=== PATIENT | male | born 1965 ===

== ENCOUNTER → 2024-10-18 08:02 | Outpatient (BNVA) | payer SELFPAY | PROVIDERS: PCP Family Medicine; Visit Provider Podiatrist Foot & Ankle Surgery | DX: S82.842A Displaced bimalleolar fracture of left lower leg, initial encounter for closed fracture (principal); W17.89XA Other fall from one level to another, initial encounter | CPT/HCPCS: 73590; 73610 ==

== ENCOUNTER 2024-10-18 10:52 | Outpatient (CLI) | payer SELFPAY | END 2024-10-18 10:53 | disposition home or self-care (01) | LOC: SPT 10:52 | PROVIDERS: PCP Family Medicine; Visit Provider Podiatrist Foot & Ankle Surgery | DX: Z46.89 Encounter for fitting and adjustment of other specified devices (principal); S82.892D Other fracture of left lower leg, subsequent encounter for closed fracture with routine healing; X58.XXXD Exposure to other specified factors, subsequent encounter | CPT/HCPCS: L4361 ==

== ENCOUNTER 2024-10-22 07:43 | Day surgery (SDC) | payer SELFPAY ==
[2024-10-22] VITALS (14 sets, daily range): BP systolic 104–218; BP diastolic 75–129; PULSE 72–88; RESP 16–18; TEMP 36.1–36.8; O2SAT 91–98; BMI 38.2
--- NOTE | 2024-10-22 | XR_ITS ---
WS: [id number] XR ankle LT min 3V* [id number] REASON FOR EXAM: ORIF left bimalleolar ankle fracture FINDINGS: Plate and screw fixation of distal supra syndesmotic fracture of the fibula. Additionally, trans tibiofibular anchor. Surgical appliances are intact and in proper position and alignment. Fracture fragments are in good apposition and alignment. XR/XR ankle LT min 3V* [id number] IMPRESSION: Distal left fibular fracture with internal fixation as above.
[2024-10-22] MEDS: CELEcoxib 200 mg Capsule 400 MG PO (08:39)
[2024-10-22] MEDS: gabapentin 300 mg Capsule PO (08:39)
[2024-10-22] MEDS: sodium chloride 0.9% 1,000 ML 30 ML IV (08:41)
[2024-10-22] MEDS: hyDRALAzine 20 mg/mL INJ 1 mL 10 MG IVP (08:46)
--- NOTE | 2024-10-22 08:51 | P.ANESASSM_ITS ---
Pre-Anesthetic Assessment Height/Weight: Height 1.88 m Weight 135.171 kg Temp Pulse Resp BP Pulse Ox O2 Del Method 98.3 F 82 18 176/114 95 Room Air 10/22/24 08:12 10/22/24 08:12 10/22/24 08:12 10/22/24 08:36 10/22/24 08:12 10/22/24 08:12 Preop Diagnosis: Left bimalleolar ankle fracture Operation Date: 10/22/24 09:55 Proposed Procedures p ORIF Ankle ORIF Bimalleolar Fracture(Left) - Adrien Duarte DPM Familial anesthetic complications: none Was Beta Vianney taken within 24 hours: N/A Was Clonidine taken within 24 hours: N/A Last intake: Intake Last Liquid Date 10/21/24 Last Liquid Time 22:30 Last Solid Date 10/21/24 Last Solid Time 21:00 Social Tobacco 1 pack(s) per day 38 pack years Exam alert, oriented x 3, clear to auscultation bilaterally and regular rate & rhythm Airway Mallampati: Class II Comments: Comments: endentulous Pulmonary None reported CV/HEM None reported HTN preop 176/112 hydralazine 10mg IVP once given. None reported Hepatic None reported GI None reported Metabolic Morbid Obesity [facility] [place] None reported Neuropsych None reported Anesthetic Plan ASA status: 3 Anesthesia: Eval. for regional block and General Risk of > 500 ml blood loss (7ml/kg in children): No Medications/Allergies Home Medications ?Medication ?Instructions ?Recorded ?Confirmed ?Last Taken ?Type CAM boot #1 ea 10/18/24 10/18/24 Unkn own Rx acetaminophen 300 mg-codeine 30 mg 1 - 2 tab PO Q4H 10/22/24 Unknown History tablet Allergies Allergy/AdvReac Type Severity Reaction Status Date / Time No Known Allergies Allergy Verified 10/22/24 07:51 Current Medications Generic Name Dose Route Start Last Admin Trade Name Freq PRN Reason Stop Dose Admin Sodium Chloride 1,000 mls @ 30 mls/hr 10/22/24 08:15 10/22/24 08:41 Sodium Chloride 0.9% IV 10/23/24 08:14 30 mls/hr .Q24H RUTH Administration PFSH Anesthesia Social History Smoking and tobacco/nicotine status: unknown if used tobacco/nicotine Data Anesthesia Cardiac Studies: No Data to Display
--- NOTE | 2024-10-22 08:57 | W.PM.OPSUD ---
Surgery/Procedure H&P Update DATE OF PROCEDURE: October 22, 2024 DATE H&P PERFORMED: 10/18/24 H&P UPDATE INFORMATION: I have reviewed H&P completed within last 30 days, I have examined patient prior to procedure, No changes to prior documentation, H&P is in [facility] EMR on date indicated and Risks and benefits of the procedure reviewed PREOP DIAGNOSIS: Left bimalleolar ankle fracture PLANNED PROCEDURE: Operation Date: 10/22/24 09:55 Proposed Procedures p ORIF Ankle ORIF Bimalleolar Fracture(Left) - Adrien Duarte DPM
--- NOTE | 2024-10-22 09:09 | ANES.PROC ---
Anesthesia Procedures Procedure/Date: 10/22/24 Nerve Block ^: Nerve Block 1: Main Anesthesia: general anesthesia Time Out Performed: Yes Consent: requested by attending/covering physician, from patient, from other, risks and benefits reviewed and patient agrees to proceed Nerve block location: popliteal (R) Anesthesia monitors applied: pulse oximetry, EKG, BP cuff and oxygen Nerve block position: supine Anesthetic Used: ropivicaine 0.5% (30 ml) and with decadron (4 mg) Ultrasound used to: recognize landmarks Nerve Stimulator Used?: No Interscalene/Femoral BLK: 4 stimuplex 21 g needle used for position and inplane approach, visualize local anesthetic spread and no vascular puncture identified Injection: neg aspiration of heme Patient Tolerated Procedure: well Complications: none
--- NOTE | 2024-10-22 09:15 | SUR.PREOP ---
Patients wedding ring removed and taken to in waiting room
[2024-10-22] MEDS: ceFAZolin 3,000 MG in sodium chloride 0.9% (plus) 100 ML 200 MG IV (09:28)
--- NOTE | 2024-10-22 10:43 | P.BOP_ITS ---
Date of procedure: 10/22/2024 Surgeon name: Mario RubinPVahe Manufacturing Engineer Assembly(s) name(s): Daniela Procedure(s) performed: ORIF left bimalleolar ankle fracture Description of findings: Left bimalleolar ankle fracture Estimated blood loss: 5 cc Tourniquet time: 54-minute Specimen(s) removed: None Post-operative diagnosis: Left bimalleolar ankle fracture
--- NOTE | 2024-10-22 10:46 | PM.OP ---
Operative Report Date of procedure: October 22, 2024 Surgeon: Adrien Duarte DPM Procedure: Date of procedure: 10/22/2024 Pre-op diagnosis: Left bimalleolar ankle fracture Post-op diagnosis: Same Post-op findings: Left bimalleolar equivalent ankle fracture with syndesmotic disruption Procedure done: ORIF left bimalleolar ankle fracture CPT 06613 Implants: Anatomic fibular plate, 3.0 interfrag screw all from [employer] INAPPIN, tight rope [employer] INAPPIN Specimens removed: None Surgeon: Dr. Adrien Duarte DPM Trust Officer: Daniela Estimated blood loss: 5 cc Tourniquet time: 54 minutes Complications: None Patient is a 59-year-old male that has a history of left bimalleolar equivalent ankle fracture. The patient has had the aforementioned chief complaint for some time. Conservative treatment measures have been attempted and the patient has opted for surgical intervention at this time. A lengthy discussion regarding the procedure, including risks and complications has been had with the patient and is noted in the recent clinic note. Written and verbal consent have been obtained. All patient questions have been answered to the patient?s satisfaction. No written or verbal guarantees have been given or implied. The patient has been NPO since midnight. The history has been reviewed and the history and physical is current. The signed consent was confirmed and placed in the patient chart. Patient imaging has been reviewed and is consistent with the diagnosis. Under mild sedation, the patient was brought into the operating room and placed on the table in the supine position. IV antibiotics were given by the anesthesia team as preoperative surgical prophylaxis. General sedation was then performed by the anesthesiateam. A popliteal block was performed by the anesthesia department. A pneumatic tourniquet was then placed about the left thigh. The operative extremity was then prepped and draped in the usual fashion. The extremity was then elevated and exsanguinated before the tourniquet was inflated to 325 mmHg. After inflation, the following procedure was then performed. Attention was directed to the lateral aspect of the left ankle where an 8 cm incision was made using a #15 blade. Dissection was carried down through subcutaneous superficial fascia to the level of the fibula. Periosteum was incised expose the underlying fracture. Fracture was full of hematoma. This was debrided using combination of rongeur, curette. Next fracture site was reduced using a lobster claw reduction clamp. Temporary fixation with K wire was performed. 3 oh headed interfrag screw was then placed across the fracture site. An anatomic fibular plate was then positioned on the lateral aspect of the fibula. Distal holes of the plate were filled with locking screws followed by proximal holes being filled with combination of locking and nonlocking screws. Syndesmotic injury was noted after repair of fibula. Tight rope fixation was then applied for syndesmotic repair. Good positioning of orthopedic hardware was noted. Talus is well-positioned within the mortise. No further instability was noted. Site was irrigated with copious amounts of sterile saline before attention was directed to closure. Deep tissue was closed with 2-0 Vicryl followed by subcuticular closure with 3-0 Vicryl and skin closure with 3-0 nylon in horizontal mattress fashion. Tourniquet was let down good hyperemic response was noted to all digits of the left foot. Incision was dressed with Xeroform, 4 x 4 gauze, Kerlix, Cayden. Patient was placed in a cam boot. The patient tolerated the procedure and anesthesia well and without complication. The patient was transported from the operating room to the recovery room with vital signs stable and vascular status intact to all digits of the left foot. The patient was given both written and verbal instructions to remain nonweightbearing to the operative extremity, to keep dressings/splint clean, dry and intact and to take pain medication as directed. The patient will follow-up in the outpatient setting at their scheduled appointment. The patient was discharged with my personal number and was instructed to call if any questions or issues should arise. They were discharged home once anesthesia criteria was met.
[2024-10-22] MEDS: fentaNYL 50 mcg/mL INJ 2mL IVP (11:07)
[2024-10-22] MEDS: HYDROcodone-acetaminophen 5-325 mg Tablet 1 TAB PO (11:55)
--- NOTE | 2024-10-22 12:45 | ANE.PACU2 ---
Inpatient post-anesthesia follow up: Airway intact: Yes Vital signs: Temperature 98.2 F Pulse Rate 83 Respiratory Rate 18 Blood Pressure 128/91 Pulse Oximetry 92 Oxygen Delivery Me thod Room Air Oxygen Flow Rate 1 Fraction of Inspir ed Oxygen Hydration adequate: Yes Nausea and vomiting: No Pain level: 1 Mental status: Baseline
== END 2024-10-22 12:45 | disposition home or self-care (01) ==
PROVIDERS: PCP Family Medicine; Visit Provider Podiatrist Foot & Ankle Surgery
PROC: (CPT 27814; principal; 2024-10-22 09:45)
DX: S82.842A Displaced bimalleolar fracture of left lower leg, initial encounter for closed fracture (principal); S93.432A Sprain of tibiofibular ligament of left ankle, initial encounter; F17.210 Nicotine dependence, cigarettes, uncomplicated; I10 Essential (primary) hypertension; E66.01 Morbid (severe) obesity due to excess calories; Z68.38 Body mass index [BMI] 38.0-38.9, adult; W13.8XXA Fall from, out of or through other building or structure, initial encounter
CPT/HCPCS: 27814; 27829; 73610; 76000; C1713 ×2; J0360; J0690; J1100; J2795; J3010; J7030; J9999

== ENCOUNTER → 2024-11-05 15:37 | Outpatient (BNVA) | payer SELFPAY | PROVIDERS: PCP Family Medicine; Visit Provider Podiatrist Foot & Ankle Surgery | DX: S82.842A Displaced bimalleolar fracture of left lower leg, initial encounter for closed fracture (principal); W13.3XXA Fall through floor, initial encounter | CPT/HCPCS: 73610 ==

== ENCOUNTER → 2024-11-19 14:26 | Outpatient (BNVA) | payer SELFPAY | PROVIDERS: PCP Family Medicine; Visit Provider Podiatrist Foot & Ankle Surgery | DX: S82.842D Displaced bimalleolar fracture of left lower leg, subsequent encounter for closed fracture with routine healing (principal); X58.XXXD Exposure to other specified factors, subsequent encounter | CPT/HCPCS: 73610 ==

== ENCOUNTER → 2024-12-03 14:47 | Outpatient (BNVA) | payer MEDICAID, SELFPAY | PROVIDERS: PCP Family Medicine; Visit Provider Podiatrist Foot & Ankle Surgery | DX: S82.842A Displaced bimalleolar fracture of left lower leg, initial encounter for closed fracture (principal); X58.XXXA Exposure to other specified factors, initial encounter | CPT/HCPCS: 73610 ==

== ENCOUNTER → 2024-12-18 15:35 | Outpatient (BNVA) | payer MEDICAID, SELFPAY | PROVIDERS: PCP Family Medicine; Visit Provider Podiatrist Foot & Ankle Surgery | DX: S82.842D Displaced bimalleolar fracture of left lower leg, subsequent encounter for closed fracture with routine healing (principal); X58.XXXD Exposure to other specified factors, subsequent encounter; Z98.890 Other specified postprocedural states | CPT/HCPCS: 73610; 99024 ==